=== PATIENT | female | born 1955 | race Caucasian/White ===

== ENCOUNTER 2017-08-29 10:28 | Outpatient (CLI) | payer MEDICARE ==
[~2017-08-29 10:28] MED LIST: ADV50100 IH; ALBU17AE26 INH; BUPR300T53 PO; DULO-31 PO; FERR325T28 PO; HYDR-565 PO; MORP60CA18 PO; MULT-1179 PO
[2017-08-29 10:34] VITALS: BP 136/75
== END 2017-08-29 11:25 | disposition home or self-care (01) ==
LOC: ORTHO 10:28
PROVIDERS: ATTEND Nurse Practitioner Family
DX: S52.502D Unspecified fracture of the lower end of left radius, subsequent encounter for closed fracture with routine healing (principal); S52.612D Displaced fracture of left ulna styloid process, subsequent encounter for closed fracture with routine healing; F32.9 Major depressive disorder, single episode, unspecified; J43.9 Emphysema, unspecified; Z82.61 Family history of arthritis; Z87.891 Personal history of nicotine dependence; X58.XXXD Exposure to other specified factors, subsequent encounter
CPT/HCPCS: 73110

== ENCOUNTER 2020-10-12 08:45 | Outpatient (CLI) | payer BC ==
[~2020-10-12 08:45] MED LIST changes: +HYDR-4353 PO; -HYDR-565 PO
== END 2020-10-12 23:45 | disposition home or self-care (01) ==
LOC: RAD 08:45
DX: M48.03 Spinal stenosis, cervicothoracic region (principal); M54.12 Radiculopathy, cervical region
CPT/HCPCS: 72141

== ENCOUNTER 2024-12-27 13:20 | Emergency (ER) | payer MEDICARE, BC ==
[~2024-12-27] VITALS: Ht 167.6 cm; Wt 67.5 kg
[2024-12-27 13:25] VITALS: BP 165/73; PULSE 82; RESP 15; O2SAT 97
[2024-12-27] MEDS: triamcinolone acetonide 40mg/ml inj IM ONE (13:44)
[2024-12-27] MEDS ORDERED: TRIA15CR61 TOP (14:08)
[2024-12-27] MEDS ORDERED: METH4TAB81 PO (14:08)
[2024-12-27 14:21] VITALS: TEMP 98.2
== END 2024-12-27 14:15 | disposition home or self-care (01) ==
LOC: ER 13:20
DX: L23.7 Allergic contact dermatitis due to plants, except food (principal)
CPT/HCPCS: 96372; 99283; J3301